=== PATIENT | male | born 1985 | race Caucasian/White ===

== ENCOUNTER → 2021-11-30 | Outpatient (CLI) | payer MEDICAID ==
[2021-01-24 14:37] VITALS: BP 120/76
[~2021-11-30] MED LIST: APIX5TAB PO; GABA300C18 PO; GABA600T7 PO; HYDR50CA2 PO; LIPA1CAP6 PO; LORA0.5T96 PO; MORP15TA PO; ONDA4TAB12 PO; OXYC10TA PO; OXYC5TAB4 PO; PANT20TA2 PO; POLY2500 PO; PRAZ1CAP2 PO; TRAZ-118 PO
--- NOTE | 2021-11-30 16:02 | PDOC1 ---
INITIAL PAIN CONSULT DATE OF SERVICE: DOS: DATE: 11/30/21 TIME: 15:56 CHIEF COMPLAINT: Chief Complaint: Low back and bilateral lower extremity pain Chronic abdominal pain HISTORY OF PRESENT ILLNESS: 36-year-old male presents with history of pain in the low back for about 15 years after he fell in 2006 off a balcony onto concrete step landing on his back patient reports has had significant back pain over the years has been getting much worse over the past 1 year or so but has had some significant pain with abdominal pain from pancreatitis multiple paracenteses multiple J stents placed and removed over the past 8 months of significant abdominal pain as well. Kaleb bosch reports the pain in his back however is his chief complaint currently is constant sharp and stabbing and shooting across the low back more on the right side than the left but present bilaterally some into the lower extremities but only occasionally patient reports mostly in the back itself patient reports worse with walking standing worse with change positions wakes him from sleep at least 4-5 times a night does not affect his bowel bladder control but does affect his ability to walk patient has been doing his exercising heat and cold packs to the back which only helped very temporarily he has had no formal physical therapy at this point chiropractic treatment or other therapies. Patient has been taking gabapentin as well as Tylenol and ibuprofen neither which decrease the pain significantly oxycodone however does decrease the pain by about 50 to 60%. Patient rates his disability rating 0-10 10 being the worst is a 6-9 within house possibilities recreation social activity 5 with occupation 10 with sexual behavior 7-8 with self-care and 10 with life support activities. Patient's not had any diagnostic studies for his lumbar spine or otherwise besides the abdomen. PAST MEDICAL HISTORY: PMH: Chronic pancreatitis with gallstones secondary to alcohol abuse, depression, hypercoagulability PREVIOUS SURGERIES: Past Surgical Hx: Pancreatic duct stents biliary duct stents multiple paracenteses J-Vac drain placement and celiac plexus block CURRENT MEDICATIONS: Current Meds: Active Scripts Medications Dose Route/Sig Max Daily Dose Days Date Category Polyethylene Glycol 3350 2,500 Gm Powder 17 Gm PO DAILY 11/30/21 Reported Abby Rivera 24,000 Units Capsule (Lipase/Protease/Amylase) 1 Each Capsule.dr 2 Each PO TID 11/30/21 Reported Trazodone Hcl 50 Mg Tablet 1 Tab PO QHS 11/30/21 Reported Gabapentin (Gabapentin) 300 Mg Capsule 600 Mg PO HS 11/30/21 Reported Gabapentin 600 Mg Tablet 600 Mg PO BID 11/30/21 Reported Hydroxyzine Pamoate 50 Mg Capsule 1 Cap PO TID 11/30/21 Reported Eliquis (Apixaban) 5 Mg Tablet 5 Mg PO BID 11/30/21 Reported Oxycodone Hcl Immed.release (Oxycodone Hcl) 5 Mg Tablet 10 Mg PO BID PRN 11/30/21 Reported Protonix (Pantoprazole Sodium) 20 Mg Tablet.dr 1 Tab PO DAILY 11/30/21 Reported Prazosin Hcl 1 Mg Capsule 1 Cap PO QHS 11/30/21 Reported Morphine Sulfate 15 Mg Tablet 1 Tab PO TID 11/30/21 Reported Ondansetron Odt (Ondansetron) 4 Mg Tab.rapdis 1 Tab PO PRN Q6-8HRS PRN 11/30/21 Reported Oxycodone Hcl Immed.release (Oxycodone Hcl) 10 Mg Tablet 10 Mg PO PRN Q6HRS PRN 11/30/21 Reported ALLERGIES; Allergies: Coded Allergies: No Known Drug Allergies (Unverified , 01/12/21) FAMILY HISTORY: Family Hx: Factor V deficiency SOCIAL HISTORY: Social Hx: Patient reports he is quit drinking was a very heavy drinker of hard alcohol still smokes cigarettes and has for 29 years less than a pack a day denies any illegal is recreational drugs is lives with his spouse lives locally in [facility] and 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 REVIEW OF SYSTEMS: ROS: Positive for those items mentioned in history of present illness, all systems are reviewed, otherwise negative ,and are complete full and well-documented on patient's chart. PHYSICAL EXAM: VS: Blood pressure is 110/88 pulse 85 respirations 21 temperature is 98.1 F height is 5 foot 10 inches weight is 173 pounds. PE: PHYSICAL EXAMINATION: GENERAL: The patient is awake, alert, oriented, appropriate, very pleasant in demeanor, patient companied by his . HEENT: Shows normocephalic, atraumatic. Extraocular movements are intact and symmetrical. Oral cavity: Mucous membranes moist and pink. Dentition is inta ct. NECK: Shows anterior throat supple without palpable lymphadenopathy noted. Swallow reflex symmetrical. CHEST: Shows normal on inspection. Breath sounds are clear bilaterally, distant but no rales rhonchi wheezes auscultated. HEART: Shows S1, S2 clear. No murmurs auscultated. ABDOMEN: Soft, nontender, nondistended. No palpable organomegaly is noted. Multiple scarring is noted from previous drains and stent placements BACK: Shows spine grossly in the midline. Normal-appearing cervical lordotic curvature. There is slightly increased thoracic kyphosis, some minor flattening of the lumbar lordotic curvature. Lumbar paraspinous muscles show symmetrical on inspection, on palpation shows some moderate tenderness diffusely throughout the upper, middle and lower distribution of the paraspinous muscles bilaterally and also into the lower thoracic paraspinous musculature, firm and tender, but without specific trigger points, without radiation of pain. The patient has good rotational motion of the lumbar spine, both laterally as well as extension and flexion without significant difficulty. No tenderness over the spinous processes, sacrum or sacroiliac regions. EXTREMITIES: Lower extremities show deep tendon reflexes 2+ in the patellar and tendo calcaneus tendons. Motor exam is 4 on a scale of 5 with right dorsiflexion, extension, quadriceps and hamstring flexion and 4/5 on the left. Peripheral pulses are 1 to posterior tibial. No peripheral edema is noted bilaterally. Lower extremities are warm and dry to touch, equal in color and appearance. SKIN: Shows warm and dry, good turgor. No edema. No sores, rashes or bruising throughout. IMPRESSION: Impression: 36-year-old male with long history of low back pain rating the bilateral lower extremities in a radicular fashion intermittently History of chronic pancreatitis and chronic abdominal pain Hypercoagulability Plan: Options were discussed with patient including conservative medical management physical therapies interventional techniques. We will first obtain an MRI scan of the lumbar spine to better differentiate the etiology of the low back pain that may be present. Patient has been taking oxycodone and I feel this is reasonable considering his chronic abdominal pain situation and as long as not abusing alcohol this may be an appropriate measure for him to take up to 2-3 times daily, as necessary, going forward. We formed it we will not prescribe this medication for him however and he will follow-up with his primary care physician. Patient to follow-up after MRI scan is obtained we will discuss results and formulate plan for further treatment at that time. ALFONZO MUNOZ MD Nov 30, 2021 16:02
== END | disposition home or self-care (01) ==
LOC: PNCL 13:10
PROVIDERS: ATTEND Anesthesiology
DX: M79.605 Pain in left leg (principal); M79.604 Pain in right leg; M54.50 Low back pain, unspecified; G89.29 Other chronic pain; R10.9 Unspecified abdominal pain; F41.9 Anxiety disorder, unspecified; F32.9 Major depressive disorder, single episode, unspecified; F17.210 Nicotine dependence, cigarettes, uncomplicated; Z79.899 Other long term (current) drug therapy; Z98.890 Other specified postprocedural states; Z72.89 Other problems related to lifestyle
CPT/HCPCS: 99214; G0463